=== PATIENT | male | born 1980 | race African-American/Black ===

== ENCOUNTER 2017-06-18 00:10 | Emergency (ER) | payer BC ==
[~2017-06-18] VITALS: Ht 180.3 cm; Wt 147.0 kg
[~2017-06-18 00:10] MED LIST: BENT20TA PO; DICY1TAB26 PO; DULA0.5I SQ; ZOFR4TAB3 PO; ZOFR4TAB3 SL
[2017-06-18 00:15] VITALS: BP 130/70; PULSE 97; RESP 18; TEMP 97.6; O2SAT 100
[2017-06-18] MEDS ORDERED: CYCL5TAB PO (01:00)
[2017-06-18] MEDS ORDERED: HYDR-3534 PO (01:54)
[2017-06-18] MEDS ORDERED: MEDR4PAK PO (01:54)
[2017-06-18] MEDS ORDERED: ROBA750T PO (01:54)
--- NOTE | 2017-06-18 01:56 | PD ---
HPI Chief Complaint: Back/ Neck Pain or Injury Time Seen by Provider: 01:51 Travel History International Travel<30 days: No Contact w/Intl Traveler<30days: No Traveled to known affect area: No History of Present Illness HPI 36-year-old male with 1 week of low back pain radiating to the left lower extremity onset 1 week ago after lifting heavy dresser. Patient denies any fall or axial loading injury. Patient has had back injury 2 years ago with imaging at that time. She denies any bladder or bowel dysfunction or saddle anesthesia. Patient has experienced some intermittent tingling in the left lower extremity denies motor weakness. No paresthesias at this time. PFSH Past Medical History Narrative Medical Diabetic, prior low back injury, vasectomy; no tobacco use; nursing notes reviewed Diabetes: Yes (borderline) Patient Takes Glucophage: No Diminished Hearing: No Immunizations Current: No Tetanus Vaccination: Unknown Influenza Vaccination: No Past Surgical History Genitourinary Surgery: Yes (vasectomy) Other Surgery: Yes (VASECTOMY) Social History Alcohol Use: No Tobacco Use: No Substance Use: No Allergies-Medications (Allergen,Severity, Reaction): Coded Allergies: No Known Allergies (Verified , 09/23/15) Reported Meds & Prescriptions Reported Meds & Active Scripts Active Robaxin (Methocarbamol) 750 Mg Tab 750 Mg PO Q6HR Lortab (Hydrocodone-Acetaminophen) 7.5-325 Mg Tab 1 Tab PO Q6H PRN Medrol Dosepak (Methylprednisolone) 4 Mg Dspk 4 Mg PO DIRECTED Per Pharmacist direction Reported Flexeril (Cyclobenzaprine HCl) 5 Mg Tab 5 Mg PO TID Review of Systems Except as stated in HPI: all other systems reviewed are Neg General / Constitutional: No: Fever HENT: No: Congestion Cardiovascular: No: Chest Pain or Discomfort Respiratory: No: Shortness of Breath Gastrointestinal: No: Abdominal Pain Genitourinary: No: Decreased Urinary Output, Hesitancy, Dribbling, Incontinence , Flank Pain Musculoskeletal: Positive: Myalgias, Arthralgias, Limited ROM, Pain (low back pain) Skin: No Rash ( low back pain) Neurologic: No: Weakness, Dizziness, Syncope, Focal Abnormalities, Coordination Problem, Paresthesia, Sensory Disturbance Psychiatric: No: Anxiety Hematologic/Lymphatic: No: Lymph Node Enlargement Physical Exam Narrative GENERAL: Well-developed obese male in obvious discomfort no respiratory distress SKIN: Warm and dry. HEAD: Normocephalic. EYES: No scleral icterus. No injection or drainage. NECK: Supple, trachea midline. No JVD or lymphadenopathy. CARDIOVASCULAR: Regular rate and rhythm without murmurs, gallops, or rubs. RESPIRATORY: Breath sounds equal bilaterally. No accessory muscle use. GASTROINTESTINAL: Abdomen soft, non-tender, nondistended. MUSCULOSKELETAL: No cyanosis, or edema. BACK: Lower lumbar spine and left SI joint tender to palpation without obvious deformity. Pain is exacerbated with straight leg raising of left lower extremity. DTRs 2+ and equal bilaterally sensory exam intact bilaterally motor strength 5 over 5 bilateral lower extremities. No CVA tenderness. Data Data Last Documented VS Vital Signs Date Time Temp Pulse Resp B/P Pulse Ox O2 Delivery O2 Flow Rate FiO2 06/18/17 02:12 88 18 99 06/18/17 02:11 132/74 Room Air 06/18/17 00:15 97.6 MDM Medical Decision Making Medical Screen Exam Complete: Yes Emergency Medical Condition: Yes Medical Record Reviewed: Yes Differential Diagnosis Exacerbation low back pain, lumbar disc disease, degenerative disc disease, HNP , sciatica, sacroiliitis, piriformis syndrome; also to consider cauda equina syndrome Narrative Course Patient has had previous back injury with imaging revealing no acute abnormality one week of low back pain increasing after lifting a dresser without axial load or fall this did not want to pursue imaging at this time. Patient has taken muscle relaxant home without relief. Patient offered Toradol and Decadron injection however patient does not want injection. Patient has driven herself to the hospital therefore be given prescriptions for oral medications to start as an outpatient. Patient stable for outpatient management. Diagnosis Primary Impression: Low back pain radiating down leg Referrals: Primary Care Physician 2 days Patient Instructions: General Instructions Departure Forms: Tests/Procedures, Work Release Special Instructions: no work x 2 days Additional Instructions: Continue moist heat intermittently Complete course of steroid as prescribed Discontinue Flexeril and take Robaxin muscle relaxant Take pain medication as prescribed as needed No work 2 days Return to the emergency department for any concerns or change in condition Lift nothing greater than 5 pounds Med/Other Pt SpecificInfo: Prescription(s) given Scripts Methocarbamol (Robaxin)750 Mg Pos051 Mg PO Q6HR #12 TAB Ref 0 Prov:Andree Hernandez MD 06/18/17 Hydrocodone-Acetaminophen (Lortab)7.5-325 Mg Tab1 Tab PO Q6H PRN (PAIN) #7 TAB Ref 0 Prov:Andree Hernandez MD 06/18/17 Methylprednisolone Dosepak (Medrol Dosepak)4 Mg Dspk4 Mg PO DIRECTED #1 DSPK Ref 0 Per Pharmacist direction Prov:Andree Hernandez MD 06/18/17 Disposition: 01 DISCHARGE HOME Condition: Stable Andree Hernandez MD Jun 18, 2017 01:56
[2017-06-18 02:11] VITALS: BP 132/74; PULSE 88; RESP 18; O2SAT 99
== END 2017-06-18 02:13 | disposition home or self-care (01) ==
LOC: PHED 00:10
DX: M54.5 Low back pain (principal)
CPT/HCPCS: 99284